=== PATIENT | male | born 2005 | race Caucasian/White ===

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

== ENCOUNTER 2023-03-31 21:28 | Emergency (ER) | payer MEDICAID, SELFPAY ==
--- NOTE | ~2023-03-31 | XR_ITS ---
EXAMINATION: XR CHEST CLINICAL INFORMATION: Cough COMPARISON: 07/30/2009 TECHNIQUE: Frontal view of the chest was obtained. FINDINGS: No significant abnormality is noted involving the heart, lungs, mediastinum, bony thorax or soft tissues. XR/XR chest 1V IMPRESSION: Unremarkable examination.
[2023-03-31 21:43] VITALS: BP 118/77; PULSE 126; O2SAT 100
[2023-03-31 21:45] VITALS: BP 143/65; PULSE 127; RESP 20; TEMP 38.4; O2SAT 98; BMI 43.0
[2023-03-31] MEDS: Acetaminophen 325 MG TABLET 975 MG PO (21:59)
[2023-03-31] MEDS: Ibuprofen 600 MG TABLET PO (21:59)
[2023-03-31] MEDS: Ondansetron ODT 4 MG TAB.RAPDIS TRANSLINGU (22:00)
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
[2023-03-31 22:24] LABS: COVID-19 Test Positive (Negative); IDNOW Serial# 6674DD1D
[2023-03-31 23:16] VITALS: PULSE 108; O2SAT 97
[2023-03-31 23:27] VITALS: BP 113/68; PULSE 102; RESP 18; TEMP 37.1; O2SAT 97
== END 2023-03-31 23:37 | disposition home or self-care (01) ==
PROVIDERS: Emergency Provider Emergency Medicine
DX: U07.1 COVID-19 (principal)
CPT/HCPCS: 71045; 87635; 99283